=== PATIENT | female | born 1955 | race American Indian/Alaskan Native ===

== ENCOUNTER 2020-12-31 14:26 | Emergency (ER) | payer OTHER ==
[2020-12-31 14:40] VITALS: BP 145/93
--- NOTE | 2020-12-31 15:16 | XRay Report ---
LEFT WRIST 4 VIEWS INDICATION: fall, left wrist pain. COMPARISON: None. IMPRESSION: No acute osseous or soft tissue abnormality. Minimal osteoarthritic changes are ident ified. RIGHT KNEE 3 VIEWS INDICATION: Fall, right knee pain. COMPARISON: None. IMPRESSION: No acute osseous or soft tissue abnormality. Moderate osteoarthritic changes are iden tified in the medial compartment and patellofemoral space. Mild tibial spine spurring. Small joint ef fusion is suspected on the lateral image. Signer Name: Raffi Argueta Jr, MD Signed: 12/31/2020 3:12 PM Workstation Name: [id number]
--- NOTE | 2020-12-31 15:24 | Emergency Department Report ---
ED Fall HPI - General Chief Complaint: Fall Stated Complaint: LT WRIST/RT KNEE Time Seen by Provider: 12/31/20 14:44 Source: patient Mode of arrival: Ambulatory - History of Present Illness Initial Comments: Patient is a 65-year-old female presents emergency room with complaints of a fall that occurred earlier this morning. She states that her foot got wrapped around via telephone cord and she excellently tripped and fell. She has mild left wrist and mild right knee pain. She is ambulatory without difficulty. She is still able to move the knee and the wrist. She denies ever injuring the past. She denies any numbness or weakness. Past medical history of hypertension. Allergy to sulfa. - Related Data Allergies Allergy/AdvReac Type Severity Reaction Status Date / Time Sulfa (Sulfonamide Allergy Unknown Verified 12/31/20 14:39 Antibiotics) ED Review of Systems ROS: Stated complaint: LT WRIST/RT KNEE Other details as noted in HPI Comment: All other systems reviewed and negative ED Past Medical Hx - Past Medical History Previous Medical History?: Yes Hx Hypertension: Yes - Surgical History Past Surgical History?: Yes Additional Surgical History: c-sexction,hysterectomy - Social History Smoking Status: Never Smoker Substance Use Type: None ED Physical Exam - General Limitations: No Limitations General appearance: alert, in no apparent distress - Head Head exam: Present: atraumatic, normocephalic - Eye Eye exam: Present: normal appearance - ENT ENT exam: Present: mucous membranes moist - Extremities Exam Extremities exam: Present: other (no bony ttp of the LUE, FROM of the LUE, mild discomfort with flexion of the wrist, no snuffbox ttp, no ttp of the RLE, FROM of the RLE, no deformities, no ecchymosis, neurovascularly intact throughout) - Neurological Exam Neurological exam: Present: alert, oriented X3 - Psychiatric Psychiatric exam: Present: normal affect, normal mood - Skin Skin exam: Present: warm, dry, intact ED Course Vital Signs 12/31/20 14:38 Temperature 98.0 F Pulse Rate 91 H Respiratory 18 Rate Blood Pressure 145/93 O2 Sat by Pulse 96 Oximetry ED Medical Decision Making - Radiology Data Radiology results: report reviewed X-ray left wrist No acute osseous or soft tissue abnormality. Minimal osteoarthritic changes are identified. X-ray right knee Acute osseous soft tissue abnormality. Moderate osteoarthritic changes are identified in the medial compartment and patellofemoral space. Mild tibial spine spurring. Small joint effusion is suspected on the lateral image. - Medical Decision Making Patient is a 65-year-old female presents emergency room with complaints of a fall that occurred earlier this morning. She states that her foot got wrapped around via telephone cord and she excellently tripped and fell. She has mild left wrist and mild right knee pain. She is ambulatory without difficulty. She is still able to move the knee and the wrist. She denies ever injuring the past. She denies any numbness or weakness. Past medical history of hypertension. Allergy to sulfa. Vitals are stable. On exam:no bony ttp of the LUE, FROM of the LUE, mild discomfort with flexion of the wrist, no snuffbox ttp, no ttp of the RLE, FROM of the RLE, no deformities, no ecchymosis, neurovascularly intact throughout X-ray left wrist No acute osseous or soft tis robert abnormality. Minimal osteoarthritic changes are identified.X-ray right kneeAcute osseous soft tissue abnormality. Moderate osteoarthritic changes are identified in the medial compartment and patellofemoral space. Mild tibial spine spurring. Small joint effusion is suspected on the lateral image. Discussed all results with patient answered questions. Advised patient May alternate Tylenol or ibuprofen as needed for discomfort. Follow-up with a orthopedic doctor. May use ice for 15 minutes at a time, rest, elevation. Return to emergency room for new or worsening symptoms. Critical care attestation.: If time is entered above; I have spent that time in minutes in the direct care of this critically ill patient, excluding procedure time. ED Disposition Clinical Impression: Left wrist pain Fall Qualifiers: Encounter type: initial encounter Qualified Code(s): W19.XXXA - Unspecified fall, initial encounter Right knee pain Qualifiers: Chronicity: acute Qualified Code(s): M25.561 - Pain in right knee Disposition: DC- TO HOME OR SELFCARE Is pt being admited?: No Does the pt Need Aspirin: No Condition: Stable Instructions: Musculoskeletal Pain Additional Instructions: May alternate Tylenol or ibuprofen as needed for discomfort. Follow-up with a orthopedic doctor. May use ice for 15 minutes at a time, rest, elevation. Return to emergency room for new or worsening symptoms. Referrals: YI GUEVARA MD [Staff Physician] - 2-3 Days Forms: Work/School Release Form(ED) Time of Disposition: 15:23 Print Language: POLISH
== END 2020-12-31 16:55 | disposition home or self-care (01) ==
LOC: ED 14:26
DX: M25.532 Pain in left wrist (principal); M25.561 Pain in right knee; I10 Essential (primary) hypertension; Z98.890 Other specified postprocedural states; Z88.2 Allergy status to sulfonamides; W01.0XXA Fall on same level from slipping, tripping and stumbling without subsequent striking against object, initial encounter; Y93.89 Activity, other specified; Y92.89 Other specified places as the place of occurrence of the external cause; Y99.8 Other external cause status